=== PATIENT | male | born 1985 | race Two or more races ===

== ENCOUNTER 2019-04-04 04:16 | Emergency (ER) | payer SELFPAY ==
[~2019-04-04] VITALS: Ht 170.2 cm; Wt 81.6 kg
[2019-04-04 04:20] VITALS: BP 149/80
== END 2019-04-04 07:14 | disposition home or self-care (01) ==
LOC: ER 04:20
DX: M79.641 Pain in right hand (principal)
CPT/HCPCS: 73130